=== PATIENT | female | born 1960 | race Asian ===

== ENCOUNTER 2017-01-23 09:18 | Inpatient (IN) | payer MEDICAID, OTHER ==
[~2017-01-23] VITALS: Ht 160 cm; Wt 80.4 kg
[~2017-01-23 09:18] MED LIST: GABA-529 PO; LISI-661 PO; METF500T4 PO
[2017-01-23] MEDS ORDERED: INSLAN SQ (09:32)
[2017-01-23] MEDS ORDERED: GLIP5 PO (09:32)
[2017-01-23] MEDS ORDERED: LOSA25TA21 PO (09:32)
[2017-01-23] MEDS ORDERED: HYDROmorphone 2 MG/ML SYRINGE IVP ONE (11:00)
[2017-01-23] MEDS ORDERED: ONDANSETRON HCL 4 MG/2 ML VIAL IVP ONE (11:00)
[2017-01-23] MEDS ORDERED: SODIUM CHLORIDE 0.9% 1,000 ML IV ONE (11:07)
[2017-01-23 11:15] LABS: BASOPHILS % (AUTO) 0.1 % (0.0-2.0); EOSINOPHILS % (AUTO) 0 % (1.0-6.0); HEMATOCRIT 31.6 % (36-46); LYMPHOCYTES # (AUTO) 1.4 K/uL (1.0-4.8); LYMPHOCYTES % (AUTO) 3.6 % (22.0-44.0); MEAN CORPUSCULAR HEMOGLOBIN 27.4 pg (26.0-34.0); MEAN CORPUSCULAR HGB CONC 31.8 G/dL (31.0-37.0); MEAN CORPUSCULAR VOLUME 86 fL (80-100); MONOCYTES # (AUTO) 0.9 K/uL (0.1-1.0); MONOCYTES % (AUTO) 2.3 % (2.0-9.0); NEUTROPHILS # (AUTO) 37.4 K/uL (1.8-7.7); PLATELET COUNT (AUTO) 494 K/uL (150-450); RED BLOOD CELL COUNT(AUTO) 3.67 MIL/uL (4.00-5.20); RED CELL DISTRIBUTION WIDTH 14.1 % (11.5-14.5)
[2017-01-23 11:25] LABS: WHITE BLOOD COUNT (AUTO) 39.8 K/uL (4.5-11.0)
[2017-01-23 11:26] LABS: ANION GAP 17 mmol/L (8-16); CALCIUM, TOTAL 8.7 mg/dL (8.8-10.5); CARBON DIOXIDE 23 mmol/L (22-29); CHLORIDE 92 mmol/L (98-107); CREATININE 3.36 mg/dL (0.60-1.30); GLOMERULAR FILTR. RATE CALC 14 mL/min (>60); POTASSIUM 3.7 mmol/L (3.5-5.1); SODIUM SERUM 132 mmol/L (136-145); UREA NITROGEN, BLOOD 51 mg/dL (7-18)
[2017-01-23 11:38] LABS: LACTIC ACID 2.6 mmol/L (0.4-2.0)
[2017-01-23 11:42] LABS: ALANINE AMINOTRANSFERASE 48 U/L (12-78); ALBUMIN 1.5 g/dL (3.4-5.0); ASPARTATE AMINOTRANSFERASE 37 U/L (15-37); BILIRUBIN,TOTAL 0.8 mg/dL (0.1-1.0); TOTAL PROTEIN, SERUM 9.2 g/dL (6.4-8.2)
[2017-01-23 11:44] LABS: RBC MORPHOLOGY COMMENT NORMAL RBC MORPH
[2017-01-23] MEDS ORDERED: METOCLOPRAMIDE HCL 5 MG/ML 2 ML VIAL IVP ONE (12:30)
[2017-01-23 12:32] LABS: GLUCOSE,POINT OF CARE 319 MG/DL (70-110)
[2017-01-23] MEDS ORDERED: CEFTAROLINE FOSAMIL 400 MG in DEXTROSE 5%-WATER 250 ML IV ONE (13:00)
[2017-01-23 13:11] LABS: REFLEX LACTIC ACID? YES YES
[2017-01-23] MEDS ORDERED: ACETAMINOPHEN 325 MG TABLET PO PRN ×2 (13:45→18:15)
[2017-01-23] MEDS ORDERED: 0.9% SODIUM CHLORIDE 10 ML SYRINGE IVP PRN (13:45)
[2017-01-23] MEDS ORDERED: ONDANSETRON HCL 4 MG/2 ML VIAL IVP PRN (13:45)
[2017-01-23] MEDS ORDERED: INSULIN REGULAR, HUMAN 100 UNITS/ML SQ ONE (14:15)
[2017-01-23 16:48] VITALS: BP 141/67
[2017-01-23] MEDS ORDERED: PNEUMOCOCCAL VACCINE POLYVALENT 0.5 ML VIAL [PPSV23] IM ONE (17:15)
[2017-01-23] MEDS ORDERED: IPRATROPIUM BROMIDE 0.5 MG/2.5 ML NEB SOLUTION NEB PRN (18:15)
[2017-01-23] MEDS ORDERED: ZOLPIDEM TARTRATE 5 MG TABLET PO PRN (18:15)
[2017-01-23] MEDS ORDERED: MAGNESIUM HYDROXIDE SUSPENSION 30 ML UDCUP PO PRN (18:15)
[2017-01-23] MEDS ORDERED: BISACODYL 10 MG RECTAL RECTAL SUPPOSITORY PR PRN (18:15)
[2017-01-23] MEDS ORDERED: ALBUTEROL SULFATE 2.5 MG/0.5 ML NEB SOLUTION NEB PRN (18:15)
[2017-01-23] MEDS ORDERED: MORPHINE SULFATE 2 MG/ML SYRINGE IVP PRN (18:30)
[2017-01-23] MEDS: MORPHINE SULFATE 4 MG/ML SYRINGE IVP PRN ×2 (18:43→21:09)
[2017-01-23] MEDS: DOCUSATE SODIUM 100 MG CAPSULE PO SCH (19:56)
[2017-01-23 20:19] VITALS: BP 88/45
[2017-01-23] MEDS ORDERED: SODIUM CHLORIDE 0.9% 500 ML IV ONE (23:05)
[2017-01-23] MEDS: PIPERACILLIN SODIUM/TAZOBACTAM 2.25 GM in DEXTROSE 5%-WATER 50 ML IV SCH (23:18)
[2017-01-23 23:50] VITALS: BP 106/59
[2017-01-24] VITALS (7 sets, daily range): BP systolic 78–107; BP diastolic 42–62
[2017-01-24] MEDS ORDERED: DEXTROSE 50%-WATER 25 GM/50 ML SYRINGE IVP PRN
[2017-01-24] MEDS: DAPTOMYCIN 450 MG in SODIUM CHLORIDE 0.9% 50 ML IV SCH (00:08)
[2017-01-24] MEDS: HEPARIN SODIUM,PORCINE 5,000 UNITS/ML VIAL SQ SCH ×4 (00:12→23:51)
[2017-01-24] MEDS: MORPHINE SULFATE 4 MG/ML SYRINGE IVP PRN ×4 (00:23→15:13)
[2017-01-24 00:32] LABS: GLUCOSE,POINT OF CARE 272 MG/DL (70-110)
[2017-01-24] MEDS: CLINDAMYCIN 900 MG/D5% WATER 50 ML IV SCH ×4 (00:45→23:51)
[2017-01-24] MEDS: PIPERACILLIN SODIUM/TAZOBACTAM 2.25 GM in DEXTROSE 5%-WATER 50 ML IV SCH ×3 (06:09→22:14)
[2017-01-24] MEDS: INSULIN ASPART 100 UNITS/ML SQ PRN ×2 (06:10→17:14)
[2017-01-24 06:25] LABS: BASOPHILS % (AUTO) 0.3 % (0.0-2.0); EOSINOPHILS % (AUTO) 0.1 % (1.0-6.0); HEMATOCRIT 28.3 % (36-46); HEMOGLOBIN 9.1 g/dL (12.0-16.0); LYMPHOCYTES # (AUTO) 1.6 K/uL (1.0-4.8); LYMPHOCYTES % (AUTO) 4.5 % (22.0-44.0); MEAN CORPUSCULAR HEMOGLOBIN 27.9 pg (26.0-34.0); MEAN CORPUSCULAR HGB CONC 32.3 G/dL (31.0-37.0); MEAN CORPUSCULAR VOLUME 87 fL (80-100); MONOCYTES # (AUTO) 0.9 K/uL (0.1-1.0); MONOCYTES % (AUTO) 2.6 % (2.0-9.0); NEUTROPHILS # (AUTO) 32.7 K/uL (1.8-7.7); PLATELET COUNT (AUTO) 469 K/uL (150-450); RED BLOOD CELL COUNT(AUTO) 3.28 MIL/uL (4.00-5.20); RED CELL DISTRIBUTION WIDTH 14.6 % (11.5-14.5)
[2017-01-24 06:46] LABS: NEUTROPHILS % (AUTO) 92.5 % (40.0-70.0)
[2017-01-24 06:48] LABS: WHITE BLOOD COUNT (AUTO) 35.3 K/uL (4.5-11.0)
[2017-01-24 06:55] LABS: ALBUMIN 1.4 g/dL (3.4-5.0); BILIRUBIN,TOTAL 0.6 mg/dL (0.1-1.0); CALCIUM, TOTAL 8.2 mg/dL (8.8-10.5); CHOL/HDL RATIO 21.8 (3.9-5.7); CREATININE 4.16 mg/dL (0.60-1.30); HEMOGLOBIN A1C 10.1 % (4.5-6.2); PHOSPHORUS 4.9 mg/dL (2.5-4.9); POTASSIUM 3.5 mmol/L (3.5-5.1); TOTAL PROTEIN, SERUM 8.3 g/dL (6.4-8.2)
[2017-01-24 07:01] LABS: GLUCOSE,POINT OF CARE 216 MG/DL (70-110)
[2017-01-24 07:44] LABS: RBC MORPHOLOGY COMMENT NORMAL RBC MORPH
[2017-01-24] MEDS: GABAPENTIN 100 MG CAPSULE PO SCH (08:02)
[2017-01-24] MEDS: DOCUSATE SODIUM 100 MG CAPSULE PO SCH ×2 (08:02→20:38)
[2017-01-24] MEDS: SODIUM CHLORIDE 0.9% 1,000 ML IV SCH ×2 (08:03→16:02)
[2017-01-24] MEDS: PANTOPRAZOLE SODIUM 40 MG/VIAL IVP SCH (08:03)
[2017-01-24] MEDS ORDERED: LOSARTAN POTASSIUM 25 MG TABLET PO SCH (09:00)
[2017-01-24] MEDS: INSULIN DETEMIR 100 UNITS/ML SQ SCH ×2 (09:23→20:39)
[2017-01-24] MEDS: ONDANSETRON HCL 4 MG/2 ML VIAL IVP PRN (09:59)
[2017-01-24 10:57] LABS: GLUCOSE COMMENT 1 Received Meds; GLUCOSE,POINT OF CARE 237 MG/DL (70-110)
[2017-01-24] MEDS ORDERED: SODIUM CHLORIDE 0.9% 250 ML IV ONE (11:45)
[2017-01-24] MEDS ORDERED: PHENYLEPHRINE 200 MG/D5%-WATER 250 ML IV PRN (11:45)
[2017-01-24 13:36] LABS: GLUCOSE,POINT OF CARE 267 MG/DL (70-110)
[2017-01-24] MEDS: HYDROCODONE/ACETAMINOPHEN 5-325 MG TABLET PO PRN ×2 (15:05→23:30)
[2017-01-25] VITALS (12 sets, daily range): BP systolic 85–147; BP diastolic 32–81
[2017-01-25 01:16] LABS: GLUCOSE,POINT OF CARE 293 MG/DL (70-110)
[2017-01-25 01:16] LABS: GLUCOSE COMMENT 1 Received Meds; GLUCOSE,POINT OF CARE 207 MG/DL (70-110)
[2017-01-25] MEDS: ONDANSETRON HCL 4 MG/2 ML VIAL IVP PRN ×4 (01:37→22:52)
[2017-01-25] MEDS: SODIUM CHLORIDE 0.9% 1,000 ML IV SCH ×3 (03:47→23:46)
[2017-01-25] MEDS: PIPERACILLIN SODIUM/TAZOBACTAM 2.25 GM in DEXTROSE 5%-WATER 50 ML IV SCH ×3 (05:27→21:15)
[2017-01-25] MEDS: INSULIN ASPART 100 UNITS/ML SQ PRN ×3 (05:30→17:29)
[2017-01-25 06:14] LABS: BASOPHILS % (AUTO) 0.1 % (0.0-2.0); EOSINOPHILS % (AUTO) 0.3 % (1.0-6.0); HEMATOCRIT 21.2 % (36-46); LYMPHOCYTES # (AUTO) 1.6 K/uL (1.0-4.8); LYMPHOCYTES % (AUTO) 4.4 % (22.0-44.0); MEAN CORPUSCULAR HEMOGLOBIN 28.8 pg (26.0-34.0); MEAN CORPUSCULAR VOLUME 87 fL (80-100); MONOCYTES % (AUTO) 2.8 % (2.0-9.0); NEUTROPHILS # (AUTO) 33.5 K/uL (1.8-7.7); PLATELET COUNT (AUTO) 398 K/uL (150-450); RED BLOOD CELL COUNT(AUTO) 2.44 MIL/uL (4.00-5.20); RED CELL DISTRIBUTION WIDTH 14.6 % (11.5-14.5)
[2017-01-25 06:20] LABS: CREATININE 5.79 mg/dL (0.60-1.30); MAGNESIUM 1.9 mg/dL (1.80-2.40); PHOSPHORUS 7.3 mg/dL (2.5-4.9); POTASSIUM 4.1 mmol/L (3.5-5.1)
[2017-01-25 06:58] LABS: NEUTROPHILS % (AUTO) 92.4 % (40.0-70.0); WHITE BLOOD COUNT (AUTO) 36.3 K/uL (4.5-11.0)
[2017-01-25] MEDS ORDERED: SODIUM CHLORIDE 0.9% 250 ML IV ONE (07:06)
[2017-01-25] MEDS: CLINDAMYCIN 900 MG/D5% WATER 50 ML IV SCH ×3 (09:37→23:59)
[2017-01-25] MEDS: GABAPENTIN 100 MG CAPSULE PO SCH (09:37)
[2017-01-25] MEDS: PANTOPRAZOLE SODIUM 40 MG/VIAL IVP SCH (09:37)
[2017-01-25] MEDS: HEPARIN SODIUM,PORCINE 5,000 UNITS/ML VIAL SQ SCH ×2 (09:37→20:31)
[2017-01-25] MEDS: MORPHINE SULFATE 4 MG/ML SYRINGE IVP PRN ×4 (09:38→22:52)
[2017-01-25] MEDS: DOCUSATE SODIUM 100 MG CAPSULE PO SCH ×2 (09:38→20:31)
[2017-01-25] MEDS: INSULIN DETEMIR 100 UNITS/ML SQ SCH ×2 (10:05→20:35)
[2017-01-25 10:11] LABS: RBC MORPHOLOGY COMMENT NORMAL RBC MORPH
[2017-01-25] MEDS: VITAMIN B COMP/VIT C/FOLIC ACID CAPSULE PO SCH (13:07)
[2017-01-25 13:27] LABS: GLUCOSE COMMENT 1 Received Meds; GLUCOSE,POINT OF CARE 194 MG/DL (70-110)
[2017-01-25 13:27] LABS: GLUCOSE COMMENT 1 Received Meds; GLUCOSE,POINT OF CARE 187 MG/DL (70-110)
[2017-01-25 13:27] LABS: GLUCOSE COMMENT 1 Received Meds; GLUCOSE,POINT OF CARE 197 MG/DL (70-110)
[2017-01-25 20:01] LABS: GLUCOSE COMMENT 1 Received Meds; GLUCOSE,POINT OF CARE 157 MG/DL (70-110)
[2017-01-25 22:51] LABS: HEMOGLOBIN 7.1 g/dL (12.0-16.0)
[2017-01-25] MEDS: DAPTOMYCIN 450 MG in SODIUM CHLORIDE 0.9% 50 ML IV SCH (22:53)
[2017-01-26] VITALS (17 sets, daily range): BP systolic 96–177; BP diastolic 49–80
[2017-01-26] MEDS: MORPHINE SULFATE 4 MG/ML SYRINGE IVP PRN ×6 (01:48→23:42)
[2017-01-26] MEDS: ONDANSETRON HCL 4 MG/2 ML VIAL IVP PRN ×3 (04:45→21:10)
[2017-01-26] MEDS: PIPERACILLIN SODIUM/TAZOBACTAM 2.25 GM in DEXTROSE 5%-WATER 50 ML IV SCH ×2 (05:16→15:38)
[2017-01-26 07:45] LABS: MEAN CORPUSCULAR HEMOGLOBIN 28.3 pg (26.0-34.0); MEAN CORPUSCULAR HGB CONC 32.8 G/dL (31.0-37.0); MEAN CORPUSCULAR VOLUME 86 fL (80-100); PLATELET COUNT (AUTO) 385 K/uL (150-450); RED BLOOD CELL COUNT(AUTO) 2.42 MIL/uL (4.00-5.20); RED CELL DISTRIBUTION WIDTH 14.8 % (11.5-14.5)
[2017-01-26 07:53] LABS: HEMATOCRIT 20.8 % (36-46); HEMOGLOBIN 6.8 g/dL (12.0-16.0); WHITE BLOOD COUNT (AUTO) 34.1 K/uL (4.5-11.0)
[2017-01-26 07:59] LABS: CALCIUM, TOTAL 7.9 mg/dL (8.8-10.5); CREATININE 6.76 mg/dL (0.60-1.30); MAGNESIUM 1.9 mg/dL (1.80-2.40); PHOSPHORUS 8.5 mg/dL (2.5-4.9); POTASSIUM 4.3 mmol/L (3.5-5.1)
[2017-01-26] MEDS: CLINDAMYCIN 900 MG/D5% WATER 50 ML IV SCH ×3 (08:09→23:43)
[2017-01-26 08:35] LABS: BAND NEUTROPHILS % (MANUAL) 12 % (1-5); TOTAL CELLS COUNTED 100
[2017-01-26 08:36] LABS: WBC MORPHOLOGY TOXIC GRANULATION
[2017-01-26 08:38] LABS: LYMPHOCYTES % (MANUAL) 6 % (22-44)
[2017-01-26] MEDS: CALCITRIOL 0.25 MCG CAPSULE PO SCH (09:00)
[2017-01-26] MEDS: VITAMIN B COMP/VIT C/FOLIC ACID CAPSULE PO SCH (09:00)
[2017-01-26] MEDS: INSULIN DETEMIR 100 UNITS/ML SQ SCH ×2 (09:00→21:00)
[2017-01-26] MEDS: DOCUSATE SODIUM 100 MG CAPSULE PO SCH ×2 (09:00→21:00)
[2017-01-26] MEDS: HEPARIN SODIUM,PORCINE 5,000 UNITS/ML VIAL SQ SCH ×2 (09:00→21:09)
[2017-01-26] MEDS: GABAPENTIN 100 MG CAPSULE PO SCH (09:00)
[2017-01-26] MEDS: PANTOPRAZOLE SODIUM 40 MG/VIAL IVP SCH (09:45)
[2017-01-26] MEDS ORDERED: SODIUM CHLORIDE 0.9% 500 ML IV ONE (10:57)
[2017-01-26] MEDS ORDERED: MORPHINE SULFATE 2 MG/ML SYRINGE IVP ONE (17:00)
[2017-01-26] MEDS: INSULIN ASPART 100 UNITS/ML SQ PRN (17:54)
[2017-01-26] MEDS: CeFAZolin 2 GM/DEXTROSE 50 ML IV SCH (23:46)
[2017-01-27] VITALS (8 sets, daily range): BP systolic 111–160; BP diastolic 55–90
[2017-01-27] MEDS: CeFAZolin 2 GM/DEXTROSE 50 ML IV SCH ×2 (00:39→08:00)
[2017-01-27] MEDS ORDERED: SODIUM CL IRRIG SOLN BOTTLE 250 ML IRRIG ONE (02:40)
[2017-01-27 06:06] LABS: ALPHA-1 URINE (ELP) 2.8 %; ALPHA-2 URINE(ELP) 9.6 %; BETA URINE(ELP) 16.3 %; TOTAL PROTEIN URINE 129.7 mg/dL (Not Estab.)
[2017-01-27] MEDS: HEPARIN SODIUM,PORCINE 5,000 UNITS/ML VIAL SQ SCH ×2 (07:51→20:23)
[2017-01-27 07:52] LABS: GLUCOSE,POINT OF CARE 138 MG/DL (70-110)
[2017-01-27 07:52] LABS: GLUCOSE,POINT OF CARE 147 MG/DL (70-110)
[2017-01-27] MEDS: ONDANSETRON HCL 4 MG/2 ML VIAL IVP PRN ×2 (07:54→20:23)
[2017-01-27] MEDS: PANTOPRAZOLE SODIUM 40 MG/VIAL IVP SCH (08:00)
[2017-01-27 08:02] LABS: CALCIUM, TOTAL 7.9 mg/dL (8.8-10.5); CREATININE 7.86 mg/dL (0.60-1.30); MAGNESIUM 2.1 mg/dL (1.80-2.40); POTASSIUM 4.6 mmol/L (3.5-5.1)
[2017-01-27] MEDS: INSULIN DETEMIR 100 UNITS/ML SQ SCH ×2 (08:04→20:22)
[2017-01-27] MEDS: DOCUSATE SODIUM 100 MG CAPSULE PO SCH ×2 (09:00→20:21)
[2017-01-27] MEDS: GABAPENTIN 100 MG CAPSULE PO SCH (09:00)
[2017-01-27] MEDS: CALCITRIOL 0.25 MCG CAPSULE PO SCH (09:00)
[2017-01-27] MEDS: VITAMIN B COMP/VIT C/FOLIC ACID CAPSULE PO SCH (09:00)
[2017-01-27 09:12] LABS: PHOSPHORUS 9.6 mg/dL (2.5-4.9)
[2017-01-27 09:50] LABS: BASOPHILS # (AUTO) 0.03 K/uL (0.00-0.20); BASOPHILS % (AUTO) 0.1 % (0.0-2.0); EOSINOPHILS # (AUTO) 0.15 K/uL (0.00-0.70); EOSINOPHILS % (AUTO) 0.58 % (1.0-6.0); HEMATOCRIT 23.8 % (36-46); HEMOGLOBIN 8.1 g/dL (12.0-16.0); LYMPHOCYTES # (AUTO) 1.6 K/uL (1.0-4.8); LYMPHOCYTES % (AUTO) 6.2 % (22.0-44.0); MEAN CORPUSCULAR HEMOGLOBIN 29.1 pg (26.0-34.0); MEAN CORPUSCULAR HGB CONC 33.8 G/dL (31.0-37.0); MEAN CORPUSCULAR VOLUME 86 fL (80-100); MONOCYTES # (AUTO) 0.8 K/uL (0.1-1.0); MONOCYTES % (AUTO) 3.2 % (2.0-9.0); PLATELET COUNT (AUTO) 375 K/uL (150-450); RED BLOOD CELL COUNT(AUTO) 2.77 MIL/uL (4.00-5.20); RED CELL DISTRIBUTION WIDTH 15.3 % (11.5-14.5); WHITE BLOOD COUNT (AUTO) 25.6 K/uL (4.5-11.0)
[2017-01-27 09:57] LABS: NEUTROPHILS % (AUTO) 89.9 % (40.0-70.0)
[2017-01-27 10:04] LABS: INR 1.1 (0.9-1.1); PROTHROMBIN TIME 11.5 SEC (9.4-11.6)
[2017-01-27] MEDS ORDERED: MIDAZOLAM HCL 2 MG/2 ML VIAL ONE (11:38)
[2017-01-27] MEDS ORDERED: FentaNYL CITRATE-PF 100 MCG/2 ML VIAL ONE (11:38)
[2017-01-27] MEDS ORDERED: SODIUM BICARBONATE 50 MEQ/50 ML VIAL ONE (11:39)
[2017-01-27] MEDS ORDERED: LIDOCAINE HCL/PF 1% 30 ML VIAL ONE (11:39)
[2017-01-27] MEDS ORDERED: LIDOCAINE HCL 1%/EPI 1:200,000/PF 10 ML VIAL ONE (11:39)
[2017-01-27] MEDS ORDERED: HEPARIN SODIUM 1000 UNITS/NS 500 ML ONE (11:39)
[2017-01-27] MEDS ORDERED: HEPARIN SODIUM,PORCINE 1,000 UNITS/ML 10 ML VIAL ONE (11:39)
[2017-01-27] MEDS ORDERED: ONDANSETRON HCL 4 MG/2 ML VIAL IVP ONE (12:00)
[2017-01-27] MEDS ORDERED: ONDANSETRON HCL 4 MG/2 ML VIAL ONE (12:02)
[2017-01-27] MEDS ORDERED: HEPARIN SODIUM,PORCINE 1,000 UNITS/ML VIAL IVP ONE ×3 (12:47→18:00)
[2017-01-27] MEDS ORDERED: MANNITOL 25%-12.5 GM/50 ML VIAL IVP ONE (12:47)
[2017-01-27 17:26] LABS: APPEARANCE,URINE CLOUDY (CLEAR); GLUCOSE, URINE (UA) NEGATIVE (NEGATIVE); KETONES,URINE NEGATIVE (NEGATIVE); LEUKOCYTE ESTERASE ,URINE NEGATIVE (NEGATIVE); OCCULT BLOOD,URINE LARGE (NEGATIVE); PROTEIN,URINE POS 1+ (NEGATIVE)
[2017-01-27] MEDS ORDERED: SODIUM CHLORIDE 0.9% 1,000 ML IV ONE ×2 (17:35)
[2017-01-27] MEDS: INSULIN ASPART 100 UNITS/ML SQ PRN (17:40)
[2017-01-27 17:47] LABS: ADD UA MICROSCOPIC YES
[2017-01-27] MEDS ORDERED: MANNITOL 25%-12.5 GM/50 ML VIAL IVP PRN (18:00)
[2017-01-27 18:01] LABS: RBC,URINE >100 /HPF (0-2)
[2017-01-27 18:02] LABS: RENAL EPITHELIAL CELLS,URINE Few /LPF (None Seen); SQUAMOUS EPITHELIAL CELL,UR Few /LPF (None Seen)
[2017-01-27] MEDS: HYDROCODONE/ACETAMINOPHEN 5-325 MG TABLET PO PRN (20:24)
[2017-01-28 01:11] LABS: GLUCOSE COMMENT 1 Received Meds; GLUCOSE,POINT OF CARE 163 MG/DL (70-110)
[2017-01-28 02:07] LABS: GLUCOSE,POINT OF CARE 114 MG/DL (70-110)
[2017-01-28 04:24] VITALS: BP 140/66
[2017-01-28] MEDS: INSULIN ASPART 100 UNITS/ML SQ PRN ×3 (06:27→20:17)
[2017-01-28] MEDS: HYDROCODONE/ACETAMINOPHEN 5-325 MG TABLET PO PRN ×3 (06:27→20:21)
[2017-01-28 07:13] VITALS: BP 143/69
[2017-01-28] MEDS: ONDANSETRON HCL 4 MG/2 ML VIAL IVP PRN ×2 (08:00→20:21)
[2017-01-28] MEDS: CeFAZolin 2 GM/DEXTROSE 50 ML IV SCH (08:00)
[2017-01-28] MEDS: PANTOPRAZOLE SODIUM 40 MG/VIAL IVP SCH (08:03)
[2017-01-28] MEDS: DOCUSATE SODIUM 100 MG CAPSULE PO SCH ×2 (08:07→20:00)
[2017-01-28] MEDS: GABAPENTIN 100 MG CAPSULE PO SCH (08:07)
[2017-01-28] MEDS: VITAMIN B COMP/VIT C/FOLIC ACID CAPSULE PO SCH (08:09)
[2017-01-28] MEDS: INSULIN DETEMIR 100 UNITS/ML SQ SCH ×2 (08:12→20:17)
[2017-01-28] MEDS: HEPARIN SODIUM,PORCINE 5,000 UNITS/ML VIAL SQ SCH ×2 (08:15→20:16)
[2017-01-28] MEDS: CALCITRIOL 0.25 MCG CAPSULE PO SCH (08:16)
[2017-01-28 08:55] LABS: BASOPHILS % (AUTO) 0.3 % (0.0-2.0); EOSINOPHILS % (AUTO) 0.6 % (1.0-6.0); HEMATOCRIT 26.4 % (36-46); HEMOGLOBIN 8.8 g/dL (12.0-16.0); LYMPHOCYTES # (AUTO) 1.1 K/uL (1.0-4.8); LYMPHOCYTES % (AUTO) 4.2 % (22.0-44.0); MEAN CORPUSCULAR HEMOGLOBIN 28.8 pg (26.0-34.0); MEAN CORPUSCULAR HGB CONC 33.3 G/dL (31.0-37.0); MEAN CORPUSCULAR VOLUME 86 fL (80-100); MONOCYTES # (AUTO) 0.7 K/uL (0.1-1.0); MONOCYTES % (AUTO) 2.9 % (2.0-9.0); NEUTROPHILS # (AUTO) 22.8 K/uL (1.8-7.7); PLATELET COUNT (AUTO) 442 K/uL (150-450); RED BLOOD CELL COUNT(AUTO) 3.07 MIL/uL (4.00-5.20); RED CELL DISTRIBUTION WIDTH 15.4 % (11.5-14.5); WHITE BLOOD COUNT (AUTO) 24.8 K/uL (4.5-11.0)
[2017-01-28 09:19] LABS: CALCIUM, TOTAL 8.6 mg/dL (8.8-10.5); CREATININE 5.73 mg/dL (0.60-1.30); MAGNESIUM 1.9 mg/dL (1.80-2.40); PHOSPHORUS 6.5 mg/dL (2.5-4.9); POTASSIUM 3.8 mmol/L (3.5-5.1)
[2017-01-28 09:56] LABS: RBC MORPHOLOGY COMMENT NORMAL RBC MORPH
[2017-01-28 11:20] VITALS: BP 150/71
[2017-01-28 11:27] LABS: GLUCOSE,POINT OF CARE 133 MG/DL (70-110)
[2017-01-28 11:32] LABS: GLUCOSE,POINT OF CARE 137 MG/DL (70-110)
[2017-01-28 11:33] LABS: GLUCOSE,POINT OF CARE 142 MG/DL (70-110)
[2017-01-28 11:33] LABS: GLUCOSE COMMENT 1 Received Meds; GLUCOSE,POINT OF CARE 134 MG/DL (70-110)
[2017-01-28 11:33] LABS: GLUCOSE COMMENT 1 Received Meds; GLUCOSE,POINT OF CARE 142 MG/DL (70-110)
[2017-01-28] MEDS: LACTOBAC ACID/BULG/BIFID/THERM TABLET PO SCH ×2 (14:04→20:18)
[2017-01-28 14:52] VITALS: BP 138/70
[2017-01-28] MEDS ORDERED: HEPARIN SODIUM,PORCINE 1,000 UNITS/ML VIAL IVP ONE (14:52)
[2017-01-28 16:42] LABS: GLUCOSE,POINT OF CARE 142 MG/DL (70-110)
[2017-01-28 20:03] VITALS: BP 149/75
[2017-01-28 21:42] LABS: GLUCOSE COMMENT 1 Received Meds; GLUCOSE,POINT OF CARE 158 MG/DL (70-110)
[2017-01-29] VITALS (7 sets, daily range): BP systolic 139–165; BP diastolic 63–93
[2017-01-29 03:42] LABS: GLUCOSE COMMENT 1 Received Meds; GLUCOSE,POINT OF CARE 141 MG/DL (70-110)
[2017-01-29 06:46] LABS: CREATININE 3.26 mg/dL (0.60-1.30); POTASSIUM 3.9 mmol/L (3.5-5.1)
[2017-01-29] MEDS: PANTOPRAZOLE SODIUM 40 MG/VIAL IVP SCH (07:40)
[2017-01-29] MEDS: CeFAZolin 2 GM/DEXTROSE 50 ML IV SCH (07:42)
[2017-01-29] MEDS: DOCUSATE SODIUM 100 MG CAPSULE PO SCH ×2 (07:43→21:00)
[2017-01-29] MEDS: HEPARIN SODIUM,PORCINE 5,000 UNITS/ML VIAL SQ SCH ×2 (07:43→22:00)
[2017-01-29] MEDS: INSULIN DETEMIR 100 UNITS/ML SQ SCH ×2 (07:45→22:01)
[2017-01-29] MEDS ORDERED: SODIUM CHLORIDE 0.9% 250 ML IV ONE (07:46)
[2017-01-29] MEDS: INSULIN ASPART 100 UNITS/ML SQ PRN ×4 (07:46→22:02)
[2017-01-29] MEDS: VITAMIN B COMP/VIT C/FOLIC ACID CAPSULE PO SCH (08:54)
[2017-01-29] MEDS: CALCITRIOL 0.25 MCG CAPSULE PO SCH (08:54)
[2017-01-29] MEDS: GABAPENTIN 100 MG CAPSULE PO SCH (08:54)
[2017-01-29] MEDS: HYDROCODONE/ACETAMINOPHEN 5-325 MG TABLET PO PRN ×2 (08:54→17:25)
[2017-01-29] MEDS: LACTOBAC ACID/BULG/BIFID/THERM TABLET PO SCH ×2 (08:54→22:00)
[2017-01-29] MEDS: SEVELAMER CARBONATE 800 MG TABLET PO SCH ×2 (13:10→18:05)
[2017-01-30 00:52] LABS: GLUCOSE COMMENT 1 Received Meds; GLUCOSE,POINT OF CARE 238 MG/DL (70-110)
[2017-01-30] MEDS: HYDROCODONE/ACETAMINOPHEN 5-325 MG TABLET PO PRN ×3 (02:13→20:01)
[2017-01-30 05:22] VITALS: BP 149/87
[2017-01-30] MEDS: INSULIN ASPART 100 UNITS/ML SQ PRN ×4 (06:01→20:51)
[2017-01-30 06:56] LABS: EOSINOPHILS % (AUTO) 0.4 % (1.0-6.0); HEMOGLOBIN 10.2 g/dL (12.0-16.0); LYMPHOCYTES # (AUTO) 1.9 K/uL (1.0-4.8); LYMPHOCYTES % (AUTO) 8.4 % (22.0-44.0); MEAN CORPUSCULAR HEMOGLOBIN 28.3 pg (26.0-34.0); MEAN CORPUSCULAR HGB CONC 32.8 G/dL (31.0-37.0); MEAN CORPUSCULAR VOLUME 86 fL (80-100); MONOCYTES # (AUTO) 0.6 K/uL (0.1-1.0); MONOCYTES % (AUTO) 2.6 % (2.0-9.0); NEUTROPHILS # (AUTO) 20.6 K/uL (1.8-7.7); PLATELET COUNT (AUTO) 477 K/uL (150-450); RED CELL DISTRIBUTION WIDTH 15.1 % (11.5-14.5); WHITE BLOOD COUNT (AUTO) 23.3 K/uL (4.5-11.0)
[2017-01-30 07:17] LABS: ALBUMIN 1.4 g/dL (3.4-5.0); BILIRUBIN,TOTAL 0.5 mg/dL (0.1-1.0); CALCIUM, TOTAL 8.5 mg/dL (8.8-10.5); CREATININE 3.26 mg/dL (0.60-1.30); POTASSIUM 3.6 mmol/L (3.5-5.1); TOTAL PROTEIN, SERUM 8.8 g/dL (6.4-8.2)
[2017-01-30 07:35] LABS: NEUTROPHILS % (AUTO) 88.6 % (40.0-70.0)
[2017-01-30 07:44] VITALS: BP 150/80
[2017-01-30] MEDS: HEPARIN SODIUM,PORCINE 5,000 UNITS/ML VIAL SQ SCH ×2 (08:27→20:01)
[2017-01-30] MEDS: SEVELAMER CARBONATE 800 MG TABLET PO SCH ×3 (08:27→18:15)
[2017-01-30] MEDS: VITAMIN B COMP/VIT C/FOLIC ACID CAPSULE PO SCH (08:27)
[2017-01-30] MEDS: DOCUSATE SODIUM 100 MG CAPSULE PO SCH ×2 (08:27→20:01)
[2017-01-30] MEDS: CeFAZolin 2 GM/DEXTROSE 50 ML IV SCH (08:27)
[2017-01-30] MEDS: PANTOPRAZOLE SODIUM 40 MG/VIAL IVP SCH (08:27)
[2017-01-30] MEDS: CALCITRIOL 0.25 MCG CAPSULE PO SCH (08:28)
[2017-01-30] MEDS: LACTOBAC ACID/BULG/BIFID/THERM TABLET PO SCH ×2 (08:28→20:01)
[2017-01-30] MEDS: GABAPENTIN 100 MG CAPSULE PO SCH (08:29)
[2017-01-30] MEDS: INSULIN DETEMIR 100 UNITS/ML SQ SCH ×2 (09:43→20:52)
[2017-01-30 11:06] VITALS: BP 151/61
[2017-01-30 13:16] LABS: GLUCOSE COMMENT 1 Received Meds; GLUCOSE,POINT OF CARE 151 MG/DL (70-110)
[2017-01-30 13:16] LABS: GLUCOSE COMMENT 1 Received Meds; GLUCOSE,POINT OF CARE 191 MG/DL (70-110)
[2017-01-30 13:22] LABS: GLUCOSE COMMENT 1 Received Meds; GLUCOSE,POINT OF CARE 159 MG/DL (70-110)
[2017-01-30 13:27] LABS: GLUCOSE COMMENT 1 Received Meds; GLUCOSE,POINT OF CARE 208 MG/DL (70-110)
[2017-01-30 15:49] VITALS: BP 137/79
[2017-01-30 19:40] VITALS: BP 154/76
[2017-01-31 00:02] VITALS: BP 140/74
[2017-01-31] MEDS: HYDROCODONE/ACETAMINOPHEN 5-325 MG TABLET PO PRN ×5 (00:35→20:29)
[2017-01-31 04:57] VITALS: BP 151/75
[2017-01-31] MEDS ORDERED: SODIUM CHLORIDE 0.9% 250 ML IV ONE (05:50)
[2017-01-31 06:19] LABS: BASOPHILS % (AUTO) 0.1 % (0.0-2.0); EOSINOPHILS % (AUTO) 1.3 % (1.0-6.0); HEMATOCRIT 30.9 % (36-46); HEMOGLOBIN 10.1 g/dL (12.0-16.0); LYMPHOCYTES # (AUTO) 2.2 K/uL (1.0-4.8); LYMPHOCYTES % (AUTO) 11.1 % (22.0-44.0); MEAN CORPUSCULAR HEMOGLOBIN 28.5 pg (26.0-34.0); MEAN CORPUSCULAR HGB CONC 32.7 G/dL (31.0-37.0); MEAN CORPUSCULAR VOLUME 87 fL (80-100); MONOCYTES # (AUTO) 0.8 K/uL (0.1-1.0); MONOCYTES % (AUTO) 4.2 % (2.0-9.0); NEUTROPHILS # (AUTO) 16.7 K/uL (1.8-7.7); NEUTROPHILS % (AUTO) 83.3 % (40.0-70.0); PLATELET COUNT (AUTO) 459 K/uL (150-450); RED BLOOD CELL COUNT(AUTO) 3.54 MIL/uL (4.00-5.20); RED CELL DISTRIBUTION WIDTH 15.3 % (11.5-14.5)
[2017-01-31] MEDS: INSULIN ASPART 100 UNITS/ML SQ PRN ×4 (06:32→21:05)
[2017-01-31 07:22] VITALS: BP 143/77
[2017-01-31 07:40] LABS: CALCIUM, TOTAL 8.7 mg/dL (8.8-10.5); CREATININE 3.02 mg/dL (0.60-1.30); MAGNESIUM 1.4 mg/dL (1.80-2.40); PHOSPHORUS 4.3 mg/dL (2.5-4.9); POTASSIUM 3.8 mmol/L (3.5-5.1)
[2017-01-31] MEDS ORDERED: MAGNESIUM SULFATE 1 GM in DEXTROSE 5%-WATER 50 ML IV ONE (08:00)
[2017-01-31] MEDS: VITAMIN B COMP/VIT C/FOLIC ACID CAPSULE PO SCH (08:54)
[2017-01-31] MEDS: PANTOPRAZOLE SODIUM 40 MG/VIAL IVP SCH (08:54)
[2017-01-31] MEDS: EPOETIN ALFA 10,000 UNITS/ML VIAL SQ SCH (08:54)
[2017-01-31] MEDS: SEVELAMER CARBONATE 800 MG TABLET PO SCH ×3 (08:54→18:05)
[2017-01-31] MEDS: DOCUSATE SODIUM 100 MG CAPSULE PO SCH ×2 (08:54→20:30)
[2017-01-31] MEDS: CALCITRIOL 0.25 MCG CAPSULE PO SCH (08:54)
[2017-01-31] MEDS: LACTOBAC ACID/BULG/BIFID/THERM TABLET PO SCH ×2 (08:54→20:28)
[2017-01-31] MEDS: HEPARIN SODIUM,PORCINE 5,000 UNITS/ML VIAL SQ SCH ×2 (08:55→20:30)
[2017-01-31] MEDS: GABAPENTIN 100 MG CAPSULE PO SCH (08:55)
[2017-01-31] MEDS: CeFAZolin 2 GM/DEXTROSE 50 ML IV SCH (09:12)
[2017-01-31] MEDS: INSULIN DETEMIR 100 UNITS/ML SQ SCH ×2 (09:21→21:05)
[2017-01-31] MEDS: ONDANSETRON HCL 4 MG/2 ML VIAL IVP PRN (10:17)
[2017-01-31 11:37] VITALS: BP 136/71
[2017-01-31 15:38] VITALS: BP 141/76
[2017-01-31 19:44] VITALS: BP 134/73
[2017-02-01] VITALS (11 sets, daily range): BP systolic 122–178; BP diastolic 60–94
[2017-02-01 01:57] LABS: GLUCOSE COMMENT 1 Received Meds; GLUCOSE,POINT OF CARE 197 MG/DL (70-110)
[2017-02-01 01:57] LABS: GLUCOSE COMMENT 1 Received Meds; GLUCOSE,POINT OF CARE 175 MG/DL (70-110)
[2017-02-01 03:16] LABS: GLUCOSE COMMENT 1 Received Meds; GLUCOSE,POINT OF CARE 242 MG/DL (70-110)
[2017-02-01 03:16] LABS: GLUCOSE COMMENT 1 Received Meds; GLUCOSE,POINT OF CARE 191 MG/DL (70-110)
[2017-02-01] MEDS: HYDROCODONE/ACETAMINOPHEN 5-325 MG TABLET PO PRN ×3 (05:15→19:36)
[2017-02-01 06:06] LABS: BASOPHILS % (AUTO) 0.3 % (0.0-2.0); EOSINOPHILS % (AUTO) 1.3 % (1.0-6.0); HEMATOCRIT 30.2 % (36-46); HEMOGLOBIN 9.9 g/dL (12.0-16.0); LYMPHOCYTES # (AUTO) 2.6 K/uL (1.0-4.8); LYMPHOCYTES % (AUTO) 13.1 % (22.0-44.0); MEAN CORPUSCULAR HEMOGLOBIN 28.5 pg (26.0-34.0); MEAN CORPUSCULAR HGB CONC 32.8 G/dL (31.0-37.0); MEAN CORPUSCULAR VOLUME 87 fL (80-100); MONOCYTES # (AUTO) 0.9 K/uL (0.1-1.0); MONOCYTES % (AUTO) 4.5 % (2.0-9.0); NEUTROPHILS # (AUTO) 16.1 K/uL (1.8-7.7); NEUTROPHILS % (AUTO) 80.8 % (40.0-70.0); PLATELET COUNT (AUTO) 448 K/uL (150-450); RED BLOOD CELL COUNT(AUTO) 3.48 MIL/uL (4.00-5.20); RED CELL DISTRIBUTION WIDTH 15.4 % (11.5-14.5); WHITE BLOOD COUNT (AUTO) 19.9 K/uL (4.5-11.0)
[2017-02-01 06:58] LABS: CALCIUM, TOTAL 8.7 mg/dL (8.8-10.5); CREATININE 2.94 mg/dL (0.60-1.30); MAGNESIUM 1.6 mg/dL (1.80-2.40); PHOSPHORUS 4.3 mg/dL (2.5-4.9); POTASSIUM 3.8 mmol/L (3.5-5.1)
[2017-02-01] MEDS: SILVER 45 ML GEL TP SCH (09:00)
[2017-02-01] MEDS: INSULIN DETEMIR 100 UNITS/ML SQ SCH ×2 (09:00→20:46)
[2017-02-01] MEDS: CALCITRIOL 0.25 MCG CAPSULE PO SCH (09:31)
[2017-02-01] MEDS: HEPARIN SODIUM,PORCINE 5,000 UNITS/ML VIAL SQ SCH (09:31)
[2017-02-01] MEDS: VITAMIN B COMP/VIT C/FOLIC ACID CAPSULE PO SCH (09:31)
[2017-02-01] MEDS: PANTOPRAZOLE SODIUM 40 MG/VIAL IVP SCH (09:31)
[2017-02-01] MEDS: GABAPENTIN 100 MG CAPSULE PO SCH (09:31)
[2017-02-01] MEDS: DOCUSATE SODIUM 100 MG CAPSULE PO SCH ×2 (09:31→20:41)
[2017-02-01] MEDS: CeFAZolin 2 GM/DEXTROSE 50 ML IV SCH (09:32)
[2017-02-01] MEDS: SEVELAMER CARBONATE 800 MG TABLET PO SCH ×3 (09:32→18:00)
[2017-02-01] MEDS: LACTOBAC ACID/BULG/BIFID/THERM TABLET PO SCH ×2 (09:32→22:00)
[2017-02-01] MEDS ORDERED: LIDOCAINE HCL/PF 1% 30 ML VIAL ONE ×2 (11:59→14:34)
[2017-02-01] MEDS ORDERED: SODIUM CHLORIDE 0.9% 0 ML IV ONE (12:00)
[2017-02-01] MEDS ORDERED: HEPARIN SODIUM 1000 UNITS/NS 0 ML ONE (12:01)
[2017-02-01] MEDS ORDERED: VERAPAMIL HCL 2.5 MG/ML 2 ML VIAL ONE (12:02)
[2017-02-01] MEDS: AmLODIPine BESYLATE 5 MG TABLET PO SCH (14:21)
[2017-02-01] MEDS ORDERED: SODIUM CHLORIDE 0.9% 1,000 ML IV ONE ×2 (14:26→15:00)
[2017-02-01] MEDS ORDERED: FentaNYL CITRATE-PF 100 MCG/2 ML VIAL ONE (14:33)
[2017-02-01] MEDS ORDERED: MIDAZOLAM HCL 2 MG/2 ML VIAL ONE (14:34)
[2017-02-01] MEDS ORDERED: HEPARIN SODIUM 1000 UNITS/NS 500 ML ONE (14:34)
[2017-02-01] MEDS ORDERED: IODIXANOL 320 MG/ML 50 ML VIAL ONE (14:35)
[2017-02-01] MEDS ORDERED: HEPARIN SODIUM,PORCINE 1,000 UNITS/ML 10 ML VIAL ONE (15:54)
[2017-02-01] MEDS ORDERED: HEPARIN SODIUM,PORCINE 5,000 UNITS/ML VIAL IVP ONE ×2 (15:57→16:30)
[2017-02-01] MEDS ORDERED: MIDAZOLAM HCL 2 MG/2 ML VIAL IVP ONE (16:20)
[2017-02-01] MEDS ORDERED: FentaNYL CITRATE-PF 100 MCG/2 ML VIAL IVP ONE (16:20)
[2017-02-01] MEDS ORDERED: HEPARIN SODIUM,PORCINE 5,000 UNITS/ML VIAL IVP PRN ×2 (16:30)
[2017-02-01] MEDS: ALTEPLASE 8 MG in SODIUM CHLORIDE 0.9% 250 ML IV SCH (17:40)
[2017-02-01] MEDS: SODIUM CHLORIDE 0.9% 500 ML IV SCH (17:42)
[2017-02-01] MEDS: MORPHINE SULFATE 4 MG/ML SYRINGE IVP PRN ×2 (19:19→22:08)
[2017-02-01] MEDS: HEPARIN SODIUM 25000 UNITS/D5W 250 ML IV PRN (19:34)
[2017-02-01] MEDS: INSULIN ASPART 100 UNITS/ML SQ PRN (20:50)
[2017-02-02] VITALS (15 sets, daily range): BP systolic 105–162; BP diastolic 51–83
[2017-02-02] MEDS: ALTEPLASE 8 MG in SODIUM CHLORIDE 0.9% 250 ML IV SCH ×3 (00:52→18:53)
[2017-02-02] MEDS: MORPHINE SULFATE 4 MG/ML SYRINGE IVP PRN (02:16)
[2017-02-02] MEDS: MORPHINE SULFATE 2 MG/ML SYRINGE IVP PRN ×3 (04:43→11:47)
[2017-02-02] MEDS: INSULIN ASPART 100 UNITS/ML SQ PRN ×2 (05:22→21:02)
[2017-02-02 05:57] LABS: CALCIUM, TOTAL 8.4 mg/dL (8.8-10.5); CREATININE 2.64 mg/dL (0.60-1.30); MAGNESIUM 1.4 mg/dL (1.80-2.40); PHOSPHORUS 4.3 mg/dL (2.5-4.9)
[2017-02-02 06:15] LABS: BASOPHILS % (AUTO) 0.2 % (0.0-2.0); EOSINOPHILS % (AUTO) 0.9 % (1.0-6.0); HEMATOCRIT 28.6 % (36-46); HEMOGLOBIN 9.3 g/dL (12.0-16.0); LYMPHOCYTES # (AUTO) 2.2 K/uL (1.0-4.8); LYMPHOCYTES % (AUTO) 10.4 % (22.0-44.0); MEAN CORPUSCULAR HEMOGLOBIN 28.8 pg (26.0-34.0); MEAN CORPUSCULAR HGB CONC 32.7 G/dL (31.0-37.0); MEAN CORPUSCULAR VOLUME 88 fL (80-100); MONOCYTES # (AUTO) 1.1 K/uL (0.1-1.0); MONOCYTES % (AUTO) 5.4 % (2.0-9.0); NEUTROPHILS # (AUTO) 17.4 K/uL (1.8-7.7); NEUTROPHILS % (AUTO) 83.1 % (40.0-70.0); PLATELET COUNT (AUTO) 350 K/uL (150-450); RED BLOOD CELL COUNT(AUTO) 3.24 MIL/uL (4.00-5.20); RED CELL DISTRIBUTION WIDTH 15.4 % (11.5-14.5); WHITE BLOOD COUNT (AUTO) 20.9 K/uL (4.5-11.0)
[2017-02-02] MEDS: SEVELAMER CARBONATE 800 MG TABLET PO SCH ×3 (08:00→19:09)
[2017-02-02 08:02] LABS: GLUCOSE,POINT OF CARE 236 MG/DL (70-110)
[2017-02-02 08:02] LABS: GLUCOSE,POINT OF CARE 178 MG/DL (70-110)
[2017-02-02] MEDS: DOCUSATE SODIUM 100 MG CAPSULE PO SCH ×2 (08:41→20:58)
[2017-02-02] MEDS: GABAPENTIN 100 MG CAPSULE PO SCH (08:41)
[2017-02-02] MEDS: VITAMIN B COMP/VIT C/FOLIC ACID CAPSULE PO SCH (08:41)
[2017-02-02] MEDS: LACTOBAC ACID/BULG/BIFID/THERM TABLET PO SCH ×2 (08:41→20:58)
[2017-02-02] MEDS: CALCITRIOL 0.25 MCG CAPSULE PO SCH (08:42)
[2017-02-02] MEDS: AmLODIPine BESYLATE 5 MG TABLET PO SCH (08:42)
[2017-02-02] MEDS: EPOETIN ALFA 10,000 UNITS/ML VIAL SQ SCH (08:44)
[2017-02-02] MEDS: PANTOPRAZOLE SODIUM 40 MG/VIAL IVP SCH (08:44)
[2017-02-02] MEDS: INSULIN DETEMIR 100 UNITS/ML SQ SCH ×2 (08:47→20:59)
[2017-02-02 09:47] LABS: GLUCOSE COMMENT 1 Received Meds; GLUCOSE,POINT OF CARE 203 MG/DL (70-110)
[2017-02-02 09:47] LABS: GLUCOSE COMMENT 1 Received Meds; GLUCOSE,POINT OF CARE 190 MG/DL (70-110)
[2017-02-02 09:47] LABS: GLUCOSE COMMENT 1 Received Meds; GLUCOSE,POINT OF CARE 237 MG/DL (70-110)
[2017-02-02] MEDS: CeFAZolin 2 GM/DEXTROSE 50 ML IV SCH (10:00)
[2017-02-02] MEDS: MAGNESIUM CHLORIDE 64 MG ER TABLET PO SCH ×2 (12:19→20:58)
[2017-02-02] MEDS: SILVER 45 ML GEL TP SCH (14:58)
[2017-02-02] MEDS: HYDROCODONE/ACETAMINOPHEN 5-325 MG TABLET PO PRN ×2 (14:59→18:53)
[2017-02-02] MEDS: HEPARIN SODIUM 25000 UNITS/D5W 250 ML IV PRN (15:27)
[2017-02-02 16:22] LABS: GLUCOSE,POINT OF CARE 148 MG/DL (70-110)
[2017-02-02] MEDS: SODIUM CHLORIDE 0.9% 500 ML IV SCH (19:11)
[2017-02-02 23:57] LABS: GLUCOSE COMMENT 1 Received Meds; GLUCOSE,POINT OF CARE 211 MG/DL (70-110)
[2017-02-03] VITALS (17 sets, daily range): BP systolic 103–162; BP diastolic 59–95
[2017-02-03] MEDS: HYDROCODONE/ACETAMINOPHEN 5-325 MG TABLET PO PRN ×4 (00:01→13:36)
[2017-02-03] MEDS: ALTEPLASE 8 MG in SODIUM CHLORIDE 0.9% 250 ML IV SCH ×2 (01:42→09:00)
[2017-02-03] MEDS ORDERED: SODIUM CHLORIDE 0.9% 250 ML IV ONE (05:07)
[2017-02-03 05:27] LABS: CALCIUM, TOTAL 8.4 mg/dL (8.8-10.5); CREATININE 2.34 mg/dL (0.60-1.30); MAGNESIUM 1.3 mg/dL (1.80-2.40); POTASSIUM 3.9 mmol/L (3.5-5.1)
[2017-02-03] MEDS: HEPARIN SODIUM 25000 UNITS/D5W 250 ML IV PRN (06:02)
[2017-02-03] MEDS: INSULIN ASPART 100 UNITS/ML SQ PRN ×4 (06:02→21:49)
[2017-02-03 06:09] LABS: BASOPHILS % (AUTO) 0.4 % (0.0-2.0); EOSINOPHILS % (AUTO) 1.2 % (1.0-6.0); HEMATOCRIT 29.2 % (36-46); HEMOGLOBIN 9.5 g/dL (12.0-16.0); LYMPHOCYTES # (AUTO) 2.9 K/uL (1.0-4.8); LYMPHOCYTES % (AUTO) 14.4 % (22.0-44.0); MEAN CORPUSCULAR HGB CONC 32.6 G/dL (31.0-37.0); MEAN CORPUSCULAR VOLUME 89 fL (80-100); MONOCYTES # (AUTO) 0.9 K/uL (0.1-1.0); MONOCYTES % (AUTO) 4.5 % (2.0-9.0); NEUTROPHILS # (AUTO) 15.9 K/uL (1.8-7.7); NEUTROPHILS % (AUTO) 79.5 % (40.0-70.0); PLATELET COUNT (AUTO) 389 K/uL (150-450); RED BLOOD CELL COUNT(AUTO) 3.28 MIL/uL (4.00-5.20); RED CELL DISTRIBUTION WIDTH 15.6 % (11.5-14.5); WHITE BLOOD COUNT (AUTO) 20.1 K/uL (4.5-11.0)
[2017-02-03 07:02] LABS: GLUCOSE COMMENT 1 Received Meds; GLUCOSE,POINT OF CARE 179 MG/DL (70-110)
[2017-02-03] MEDS: CeFAZolin 2 GM/DEXTROSE 50 ML IV SCH (08:23)
[2017-02-03] MEDS: LACTOBAC ACID/BULG/BIFID/THERM TABLET PO SCH ×2 (08:23→21:58)
[2017-02-03] MEDS: SEVELAMER CARBONATE 800 MG TABLET PO SCH ×3 (08:23→17:31)
[2017-02-03] MEDS: CALCITRIOL 0.25 MCG CAPSULE PO SCH (08:23)
[2017-02-03] MEDS: VITAMIN B COMP/VIT C/FOLIC ACID CAPSULE PO SCH (08:24)
[2017-02-03] MEDS: AmLODIPine BESYLATE 5 MG TABLET PO SCH (08:24)
[2017-02-03] MEDS: DOCUSATE SODIUM 100 MG CAPSULE PO SCH ×2 (08:24→21:49)
[2017-02-03] MEDS: GABAPENTIN 100 MG CAPSULE PO SCH (08:24)
[2017-02-03] MEDS: MAGNESIUM CHLORIDE 64 MG ER TABLET PO SCH ×3 (08:24→21:58)
[2017-02-03] MEDS: PANTOPRAZOLE SODIUM 40 MG/VIAL IVP SCH (08:24)
[2017-02-03] MEDS: INSULIN DETEMIR 100 UNITS/ML SQ SCH ×2 (08:28→21:48)
[2017-02-03] MEDS: SILVER 45 ML GEL TP SCH (09:00)
[2017-02-03] MEDS: MORPHINE SULFATE 2 MG/ML SYRINGE IVP PRN ×3 (10:00→21:14)
[2017-02-03] MEDS ORDERED: IODIXANOL 320 MG/ML 100 ML VIAL ONE ×3 (10:47→11:04)
[2017-02-03] MEDS ORDERED: IODIXANOL 320 MG/ML 150 ML VIAL ONE (10:49)
[2017-02-03] MEDS ORDERED: LIDOCAINE HCL/PF 1% 30 ML VIAL ONE (11:26)
[2017-02-03] MEDS ORDERED: FentaNYL CITRATE-PF 100 MCG/2 ML VIAL ONE (11:26)
[2017-02-03] MEDS ORDERED: MIDAZOLAM HCL 2 MG/2 ML VIAL ONE (11:26)
[2017-02-03] MEDS ORDERED: MIDAZOLAM HCL 2 MG/2 ML VIAL IVP ONE (11:27)
[2017-02-03] MEDS ORDERED: POVIDONE IODINE TP ONE (11:32)
[2017-02-03] MEDS ORDERED: FentaNYL CITRATE-PF 100 MCG/2 ML VIAL IVP ONE (11:37)
[2017-02-03] MEDS: SODIUM CHLORIDE 0.9% 500 ML IV SCH (16:52)
[2017-02-03 17:42] LABS: GLUCOSE COMMENT 1 Received Meds; GLUCOSE,POINT OF CARE 207 MG/DL (70-110)
[2017-02-03 22:41] LABS: GLUCOSE COMMENT 1 Received Meds; GLUCOSE,POINT OF CARE 185 MG/DL (70-110)
[2017-02-04] MEDS: MORPHINE SULFATE 2 MG/ML SYRINGE IVP PRN ×7 (00:13→21:12)
[2017-02-04 04:39] VITALS: BP 120/63
[2017-02-04] MEDS: INSULIN ASPART 100 UNITS/ML SQ PRN ×4 (06:13→21:00)
[2017-02-04 07:57] LABS: CALCIUM, TOTAL 8.3 mg/dL (8.8-10.5); CREATININE 2.29 mg/dL (0.60-1.30); MAGNESIUM 1.3 mg/dL (1.80-2.40); POTASSIUM 3.9 mmol/L (3.5-5.1)
[2017-02-04 08:07] LABS: GLUCOSE COMMENT 1 Received Meds; GLUCOSE,POINT OF CARE 227 MG/DL (70-110)
[2017-02-04 08:13] VITALS: BP 129/66
[2017-02-04] MEDS: CALCITRIOL 0.25 MCG CAPSULE PO SCH (08:25)
[2017-02-04] MEDS: SEVELAMER CARBONATE 800 MG TABLET PO SCH ×3 (08:25→18:07)
[2017-02-04] MEDS: VITAMIN B COMP/VIT C/FOLIC ACID CAPSULE PO SCH (08:26)
[2017-02-04] MEDS: LACTOBAC ACID/BULG/BIFID/THERM TABLET PO SCH ×2 (08:26→20:58)
[2017-02-04] MEDS: PANTOPRAZOLE SODIUM 40 MG/VIAL IVP SCH (08:26)
[2017-02-04] MEDS: AmLODIPine BESYLATE 5 MG TABLET PO SCH (08:26)
[2017-02-04] MEDS: DOCUSATE SODIUM 100 MG CAPSULE PO SCH ×2 (08:26→20:58)
[2017-02-04] MEDS: CeFAZolin 2 GM/DEXTROSE 50 ML IV SCH ×2 (08:26→23:14)
[2017-02-04] MEDS: MAGNESIUM CHLORIDE 64 MG ER TABLET PO SCH ×2 (08:27→20:58)
[2017-02-04] MEDS: GABAPENTIN 100 MG CAPSULE PO SCH (08:27)
[2017-02-04] MEDS: EPOETIN ALFA 10,000 UNITS/ML VIAL SQ SCH (08:27)
[2017-02-04] MEDS ORDERED: SODIUM CHLORIDE 0.9% 100 ML ONE (08:34)
[2017-02-04] MEDS: SILVER 45 ML GEL TP SCH (08:48)
[2017-02-04] MEDS: INSULIN DETEMIR 100 UNITS/ML SQ SCH ×2 (09:50→21:01)
[2017-02-04] MEDS ORDERED: MAGNESIUM SULFATE 3 GM in DEXTROSE 5%-WATER 100 ML IV ONE (10:30)
[2017-02-04 11:59] VITALS: BP 140/67
[2017-02-04 16:28] VITALS: BP 105/56
[2017-02-04 19:53] VITALS: BP 127/61
[2017-02-04] MEDS: HEPARIN SODIUM,PORCINE 5,000 UNITS/ML VIAL SQ SCH (21:01)
[2017-02-05 00:08] VITALS: BP 120/51
[2017-02-05 05:20] VITALS: BP 133/66
[2017-02-05] MEDS: MORPHINE SULFATE 2 MG/ML SYRINGE IVP PRN ×3 (05:25→20:20)
[2017-02-05 05:32] LABS: GLUCOSE COMMENT 1 Received Meds; GLUCOSE,POINT OF CARE 155 MG/DL (70-110)
[2017-02-05 05:32] LABS: GLUCOSE,POINT OF CARE 152 MG/DL (70-110)
[2017-02-05 05:32] LABS: GLUCOSE,POINT OF CARE 202 MG/DL (70-110)
[2017-02-05 05:36] LABS: GLUCOSE COMMENT 1 Received Meds; GLUCOSE,POINT OF CARE 153 MG/DL (70-110)
[2017-02-05 05:37] LABS: GLUCOSE,POINT OF CARE 155 MG/DL (70-110)
[2017-02-05 06:20] LABS: BASOPHILS % (AUTO) 0.3 % (0.0-2.0); EOSINOPHILS % (AUTO) 1.2 % (1.0-6.0); HEMATOCRIT 24.3 % (36-46); HEMOGLOBIN 7.9 g/dL (12.0-16.0); LYMPHOCYTES # (AUTO) 2.1 K/uL (1.0-4.8); LYMPHOCYTES % (AUTO) 15.3 % (22.0-44.0); MEAN CORPUSCULAR HEMOGLOBIN 28.6 pg (26.0-34.0); MEAN CORPUSCULAR HGB CONC 32.4 G/dL (31.0-37.0); MEAN CORPUSCULAR VOLUME 88 fL (80-100); MONOCYTES # (AUTO) 0.7 K/uL (0.1-1.0); NEUTROPHILS # (AUTO) 10.8 K/uL (1.8-7.7); NEUTROPHILS % (AUTO) 78.2 % (40.0-70.0); PLATELET COUNT (AUTO) 389 K/uL (150-450); RED BLOOD CELL COUNT(AUTO) 2.76 MIL/uL (4.00-5.20); RED CELL DISTRIBUTION WIDTH 15.9 % (11.5-14.5); WHITE BLOOD COUNT (AUTO) 13.8 K/uL (4.5-11.0)
[2017-02-05] MEDS: INSULIN ASPART 100 UNITS/ML SQ PRN ×4 (06:26→20:40)
[2017-02-05 06:54] LABS: ALBUMIN 1.5 g/dL (3.4-5.0); BILIRUBIN,TOTAL 0.3 mg/dL (0.1-1.0); CALCIUM, TOTAL 8.6 mg/dL (8.8-10.5); CREATININE 1.94 mg/dL (0.60-1.30); PHOSPHORUS 3.6 mg/dL (2.5-4.9); POTASSIUM 4.1 mmol/L (3.5-5.1); TOTAL PROTEIN, SERUM 8.3 g/dL (6.4-8.2)
[2017-02-05 07:44] VITALS: BP 128/59
[2017-02-05] MEDS: AmLODIPine BESYLATE 5 MG TABLET PO SCH (08:47)
[2017-02-05] MEDS: DOCUSATE SODIUM 100 MG CAPSULE PO SCH ×2 (08:47→20:29)
[2017-02-05] MEDS: PANTOPRAZOLE SODIUM 40 MG/VIAL IVP SCH (08:48)
[2017-02-05] MEDS: MAGNESIUM CHLORIDE 64 MG ER TABLET PO SCH ×2 (08:48→20:29)
[2017-02-05] MEDS: LACTOBAC ACID/BULG/BIFID/THERM TABLET PO SCH ×2 (08:48→20:29)
[2017-02-05] MEDS: HEPARIN SODIUM,PORCINE 5,000 UNITS/ML VIAL SQ SCH ×2 (08:48→20:29)
[2017-02-05] MEDS: SEVELAMER CARBONATE 800 MG TABLET PO SCH ×2 (08:48→12:00)
[2017-02-05] MEDS: VITAMIN B COMP/VIT C/FOLIC ACID CAPSULE PO SCH (08:49)
[2017-02-05] MEDS: SILVER 45 ML GEL TP SCH (08:49)
[2017-02-05] MEDS: CALCITRIOL 0.25 MCG CAPSULE PO SCH (08:49)
[2017-02-05] MEDS: GABAPENTIN 100 MG CAPSULE PO SCH (08:49)
[2017-02-05] MEDS: INSULIN DETEMIR 100 UNITS/ML SQ SCH ×2 (08:59→20:42)
[2017-02-05 11:24] VITALS: BP 133/70
[2017-02-05] MEDS: CeFAZolin 2 GM/DEXTROSE 50 ML IV SCH ×2 (12:07→23:08)
[2017-02-05 15:19] VITALS: BP 127/58
[2017-02-05 19:21] VITALS: BP 138/69
[2017-02-06] VITALS (7 sets, daily range): BP systolic 125–145; BP diastolic 53–74
[2017-02-06 01:36] LABS: GLUCOSE,POINT OF CARE 163 MG/DL (70-110)
[2017-02-06 01:36] LABS: GLUCOSE COMMENT 1 Received Meds; GLUCOSE,POINT OF CARE 152 MG/DL (70-110)
[2017-02-06 01:52] LABS: GLUCOSE,POINT OF CARE 191 MG/DL (70-110)
[2017-02-06 02:02] LABS: GLUCOSE COMMENT 1 Received Meds; GLUCOSE,POINT OF CARE 232 MG/DL (70-110)
[2017-02-06 02:07] LABS: GLUCOSE,POINT OF CARE 149 MG/DL (70-110)
[2017-02-06 04:26] LABS: GLUCOSE COMMENT 1 Received Meds; GLUCOSE,POINT OF CARE 251 MG/DL (70-110)
[2017-02-06 04:26] LABS: GLUCOSE COMMENT 1 Received Meds; GLUCOSE,POINT OF CARE 188 MG/DL (70-110)
[2017-02-06 04:32] LABS: GLUCOSE,POINT OF CARE 164 MG/DL (70-110)
[2017-02-06 04:32] LABS: GLUCOSE COMMENT 1 Received Meds; GLUCOSE,POINT OF CARE 270 MG/DL (70-110)
[2017-02-06] MEDS: MORPHINE SULFATE 2 MG/ML SYRINGE IVP PRN ×5 (05:02→20:19)
[2017-02-06] MEDS: INSULIN ASPART 100 UNITS/ML SQ PRN ×4 (05:56→22:37)
[2017-02-06 07:17] LABS: GLUCOSE COMMENT 1 Stat Lab Glu Request; GLUCOSE,POINT OF CARE 157 MG/DL (70-110)
[2017-02-06 07:23] LABS: CALCIUM, TOTAL 8.8 mg/dL (8.8-10.5); CREATININE 1.8 mg/dL (0.60-1.30); MAGNESIUM 1.9 mg/dL (1.80-2.40); PHOSPHORUS 3.6 mg/dL (2.5-4.9)
[2017-02-06 07:33] LABS: BASOPHILS # (AUTO) 0.05 K/uL (0.00-0.20); BASOPHILS % (AUTO) 0.4 % (0.0-2.0); EOSINOPHILS # (AUTO) 0.21 K/uL (0.00-0.70); EOSINOPHILS % (AUTO) 1.81 % (1.0-6.0); HEMATOCRIT 24.5 % (36-46); HEMOGLOBIN 8.2 g/dL (12.0-16.0); LYMPHOCYTES % (AUTO) 17.4 % (22.0-44.0); MEAN CORPUSCULAR HEMOGLOBIN 28.5 pg (26.0-34.0); MEAN CORPUSCULAR HGB CONC 33.4 G/dL (31.0-37.0); MEAN CORPUSCULAR VOLUME 85 fL (80-100); MONOCYTES # (AUTO) 0.8 K/uL (0.1-1.0); MONOCYTES % (AUTO) 6.8 % (2.0-9.0); NEUTROPHILS # (AUTO) 8.4 K/uL (1.8-7.7); NEUTROPHILS % (AUTO) 73.7 % (40.0-70.0); PLATELET COUNT (AUTO) 410 K/uL (150-450); RED BLOOD CELL COUNT(AUTO) 2.87 MIL/uL (4.00-5.20); RED CELL DISTRIBUTION WIDTH 16.1 % (11.5-14.5); WHITE BLOOD COUNT (AUTO) 11.4 K/uL (4.5-11.0)
[2017-02-06] MEDS: MAGNESIUM CHLORIDE 64 MG ER TABLET PO SCH ×2 (09:08→22:21)
[2017-02-06] MEDS: HEPARIN SODIUM,PORCINE 5,000 UNITS/ML VIAL SQ SCH ×2 (09:08→22:22)
[2017-02-06] MEDS: DOCUSATE SODIUM 100 MG CAPSULE PO SCH ×2 (09:08→22:21)
[2017-02-06] MEDS: PANTOPRAZOLE SODIUM 40 MG/VIAL IVP SCH (09:08)
[2017-02-06] MEDS: GABAPENTIN 100 MG CAPSULE PO SCH (09:08)
[2017-02-06] MEDS: CALCITRIOL 0.25 MCG CAPSULE PO SCH (09:08)
[2017-02-06] MEDS: LACTOBAC ACID/BULG/BIFID/THERM TABLET PO SCH ×2 (09:09→22:21)
[2017-02-06] MEDS: AmLODIPine BESYLATE 5 MG TABLET PO SCH (09:09)
[2017-02-06] MEDS: VITAMIN B COMP/VIT C/FOLIC ACID CAPSULE PO SCH (09:09)
[2017-02-06] MEDS: SILVER 45 ML GEL TP SCH (09:13)
[2017-02-06] MEDS ORDERED: LIDOCAINE HCL/PF 1% 30 ML VIAL ONE (09:44)
[2017-02-06] MEDS: INSULIN DETEMIR 100 UNITS/ML SQ SCH ×2 (09:44→22:38)
[2017-02-06 11:30] LABS: INR 1.1 (0.9-1.1); PROTHROMBIN TIME 11.3 SEC (9.4-11.6)
[2017-02-06] MEDS: CeFAZolin 2 GM/DEXTROSE 50 ML IV SCH ×2 (11:48→22:21)
[2017-02-06 20:17] LABS: GLUCOSE,POINT OF CARE 182 MG/DL (70-110)
[2017-02-06 20:17] LABS: GLUCOSE,POINT OF CARE 201 MG/DL (70-110)
[2017-02-06 20:21] LABS: GLUCOSE,POINT OF CARE 163 MG/DL (70-110)
[2017-02-07 01:02] LABS: GLUCOSE COMMENT 1 Received Meds; GLUCOSE,POINT OF CARE 160 MG/DL (70-110)
[2017-02-07] MEDS: MORPHINE SULFATE 2 MG/ML SYRINGE IVP PRN ×5 (03:10→20:58)
[2017-02-07 04:28] VITALS: BP 135/63
[2017-02-07] MEDS: INSULIN ASPART 100 UNITS/ML SQ PRN ×4 (06:16→21:02)
[2017-02-07 07:23] LABS: GLUCOSE COMMENT 1 Received Meds; GLUCOSE,POINT OF CARE 153 MG/DL (70-110)
[2017-02-07 07:37] LABS: CALCIUM, TOTAL 8.6 mg/dL (8.8-10.5); CREATININE 1.53 mg/dL (0.60-1.30); MAGNESIUM 1.5 mg/dL (1.80-2.40); PHOSPHORUS 3.7 mg/dL (2.5-4.9)
[2017-02-07 07:44] VITALS: BP 139/63
[2017-02-07] MEDS: HEPARIN SODIUM,PORCINE 5,000 UNITS/ML VIAL SQ SCH ×2 (08:51→20:57)
[2017-02-07] MEDS: MAGNESIUM CHLORIDE 64 MG ER TABLET PO SCH ×2 (08:51→20:56)
[2017-02-07] MEDS: LACTOBAC ACID/BULG/BIFID/THERM TABLET PO SCH ×2 (08:51→20:56)
[2017-02-07] MEDS: PANTOPRAZOLE SODIUM 40 MG/VIAL IVP SCH (08:51)
[2017-02-07] MEDS: AmLODIPine BESYLATE 5 MG TABLET PO SCH (08:52)
[2017-02-07] MEDS: DOCUSATE SODIUM 100 MG CAPSULE PO SCH ×2 (08:52→20:56)
[2017-02-07] MEDS: GABAPENTIN 100 MG CAPSULE PO SCH (08:52)
[2017-02-07] MEDS: CALCITRIOL 0.25 MCG CAPSULE PO SCH (08:52)
[2017-02-07] MEDS: VITAMIN B COMP/VIT C/FOLIC ACID CAPSULE PO SCH (08:53)
[2017-02-07] MEDS: SILVER 45 ML GEL TP SCH (08:54)
[2017-02-07] MEDS: EPOETIN ALFA 10,000 UNITS/ML VIAL SQ SCH (09:21)
[2017-02-07] MEDS: INSULIN DETEMIR 100 UNITS/ML SQ SCH ×2 (09:28→21:02)
[2017-02-07] MEDS: CeFAZolin 2 GM/DEXTROSE 50 ML IV SCH ×2 (10:30→22:39)
[2017-02-07] MEDS ORDERED: SODIUM CHLORIDE 0.9% 250 ML IV ONE (10:35)
[2017-02-07 13:04] VITALS: BP 126/60
[2017-02-07] MEDS: LIDOCAINE HCL 5% TRANSDERMAL PATCH TD SCH (13:05)
[2017-02-07 15:15] VITALS: BP 114/58
[2017-02-07 19:22] VITALS: BP 121/64
[2017-02-07] MEDS ORDERED: -LIDODERM PATCH NOTE- MISC SCH ×2 (21:00)
[2017-02-07 23:30] VITALS: BP 145/77
[2017-02-08] MEDS: MORPHINE SULFATE 2 MG/ML SYRINGE IVP PRN ×3 (00:46→06:35)
[2017-02-08 04:37] VITALS: BP 128/56
[2017-02-08] MEDS: CeFAZolin 2 GM/DEXTROSE 50 ML IV SCH ×2 (05:22→14:08)
[2017-02-08] MEDS: INSULIN ASPART 100 UNITS/ML SQ PRN (06:19)
[2017-02-08 06:42] LABS: GLUCOSE COMMENT 1 Received Meds; GLUCOSE,POINT OF CARE 149 MG/DL (70-110)
[2017-02-08 06:42] LABS: GLUCOSE COMMENT 1 Received Meds; GLUCOSE,POINT OF CARE 171 MG/DL (70-110)
[2017-02-08 06:42] LABS: GLUCOSE COMMENT 1 Received Meds; GLUCOSE,POINT OF CARE 156 MG/DL (70-110)
[2017-02-08 06:46] LABS: GLUCOSE COMMENT 1 Received Meds; GLUCOSE,POINT OF CARE 226 MG/DL (70-110)
[2017-02-08 06:50] LABS: BASOPHILS % (AUTO) 0.4 % (0.0-2.0); EOSINOPHILS % (AUTO) 2.8 % (1.0-6.0); HEMATOCRIT 24.9 % (36-46); HEMOGLOBIN 8.1 g/dL (12.0-16.0); LYMPHOCYTES # (AUTO) 1.9 K/uL (1.0-4.8); LYMPHOCYTES % (AUTO) 18.8 % (22.0-44.0); MEAN CORPUSCULAR HEMOGLOBIN 28.9 pg (26.0-34.0); MEAN CORPUSCULAR HGB CONC 32.7 G/dL (31.0-37.0); MEAN CORPUSCULAR VOLUME 89 fL (80-100); MONOCYTES # (AUTO) 0.7 K/uL (0.1-1.0); MONOCYTES % (AUTO) 6.3 % (2.0-9.0); NEUTROPHILS # (AUTO) 7.4 K/uL (1.8-7.7); NEUTROPHILS % (AUTO) 71.7 % (40.0-70.0); PLATELET COUNT (AUTO) 426 K/uL (150-450); RED BLOOD CELL COUNT(AUTO) 2.81 MIL/uL (4.00-5.20); RED CELL DISTRIBUTION WIDTH 15.9 % (11.5-14.5); WHITE BLOOD COUNT (AUTO) 10.3 K/uL (4.5-11.0)
[2017-02-08 07:11] VITALS: BP 131/71
[2017-02-08 07:17] LABS: CALCIUM, TOTAL 8.5 mg/dL (8.8-10.5); CREATININE 1.6 mg/dL (0.60-1.30); MAGNESIUM 1.5 mg/dL (1.80-2.40); POTASSIUM 3.9 mmol/L (3.5-5.1)
[2017-02-08] MEDS: LACTOBAC ACID/BULG/BIFID/THERM TABLET PO SCH (09:34)
[2017-02-08] MEDS: DOCUSATE SODIUM 100 MG CAPSULE PO SCH (09:34)
[2017-02-08] MEDS: CALCITRIOL 0.25 MCG CAPSULE PO SCH (09:34)
[2017-02-08] MEDS: MAGNESIUM CHLORIDE 64 MG ER TABLET PO SCH (09:34)
[2017-02-08] MEDS: PANTOPRAZOLE SODIUM 40 MG/VIAL IVP SCH (09:34)
[2017-02-08] MEDS: VITAMIN B COMP/VIT C/FOLIC ACID CAPSULE PO SCH (09:34)
[2017-02-08] MEDS: GABAPENTIN 100 MG CAPSULE PO SCH (09:34)
[2017-02-08] MEDS: AmLODIPine BESYLATE 5 MG TABLET PO SCH (09:34)
[2017-02-08] MEDS: HYDROCODONE/ACETAMINOPHEN 5-325 MG TABLET PO PRN (09:35)
[2017-02-08] MEDS: INSULIN DETEMIR 100 UNITS/ML SQ SCH (09:36)
[2017-02-08] MEDS: SILVER 45 ML GEL TP SCH (09:38)
[2017-02-08] MEDS: LIDOCAINE HCL 5% TRANSDERMAL PATCH TD SCH (09:39)
[2017-02-08] MEDS: HEPARIN SODIUM,PORCINE 5,000 UNITS/ML VIAL SQ SCH (09:39)
[2017-02-08] MEDS ORDERED: MAGNESIUM SULFATE 1 GM in DEXTROSE 5%-WATER 50 ML IV ONE ×4 (10:15)
[2017-02-08 11:16] VITALS: BP 123/59
[2017-02-08] MEDS ORDERED: LIDOP TD (14:53)
[2017-02-08] MEDS ORDERED: AMLO-511 PO (14:55)
[2017-02-08] MEDS ORDERED: CALC25 PO (14:55)
[2017-02-08] MEDS ORDERED: CEFA2PIG3 IV (14:57)
[2017-02-08] MEDS ORDERED: DSS100 PO (14:57)
[2017-02-08] MEDS ORDERED: EPOE10I SQ (14:58)
[2017-02-08] MEDS ORDERED: INSU100V12 SQ (15:00)
[2017-02-08] MEDS ORDERED: LACT1CAP38 PO (15:01)
[2017-02-08] MEDS ORDERED: PANT40TA25 PO (15:02)
[2017-02-08] MEDS ORDERED: SLOMG PO (15:02)
[2017-02-08] MEDS ORDERED: SILV45GE TP (15:03)
[2017-02-08] MEDS ORDERED: VITA1CAP PO (15:03)
[2017-02-08] MEDS ORDERED: BISA10S PR (15:04)
[2017-02-08] MEDS ORDERED: ACET-2247 PO (15:04)
[2017-02-08] MEDS ORDERED: HYDR-3965 PO (15:05)
[2017-02-08] MEDS ORDERED: INSNOV SQ (15:06)
[2017-02-08] MEDS ORDERED: ZOLP5 PO (15:07)
[2017-02-08 15:13] VITALS: BP 130/62
[2017-02-08] MEDS: ONDANSETRON HCL 4 MG/2 ML VIAL IVP PRN (15:28)
[2017-02-09 04:22] LABS: GLUCOSE,POINT OF CARE 141 MG/DL (70-110)
[2017-02-09 04:22] LABS: GLUCOSE,POINT OF CARE 139 MG/DL (70-110)
[2017-02-09 06:23] LABS: ALBUMIN URINE (ELP24) 34.9 %; ALPHA-1 URINE (ELP24) 3.6 %; ALPHA-2 URINE(ELP24) 9.5 %; BETA URINE(ELP24) 13.6 %; GAMMA URINE(ELP24) 38.5 %; TOTAL PROTEIN URINE 129.9 mg/dL (Not Estab.)
== END 2017-02-08 15:50 | DRG 710 ==
LOC: EMS 09:19 → 6N 13:50 → ICU 01-24 10:54 → 5S 01-25 16:35 → ICU 02-01 17:15 → 5N 02-03 18:20
PROVIDERS: ADMIT Hospitalist; ATTEND Hospitalist
PROC: 0QBN0ZZ Excision of Right Metatarsal, Open Approach (ICD-10-PCS; principal; 2017-01-25)
PROC: 30233N1 Transfusion of Nonautologous Red Blood Cells into Peripheral Vein, Percutaneous Approach (ICD-10-PCS; 2017-01-26)
PROC: 5A1D60Z (ICD-10-PCS; 2017-01-27)
PROC: B41F1ZZ Fluoroscopy of Right Lower Extremity Arteries using Low Osmolar Contrast (ICD-10-PCS; 2017-02-01)
PROC: 3E05317 Introduction of Other Thrombolytic into Peripheral Artery, Percutaneous Approach (ICD-10-PCS; 2017-02-01)
PROC: B41F1ZZ Fluoroscopy of Right Lower Extremity Arteries using Low Osmolar Contrast (ICD-10-PCS; 2017-02-03)
DX: A41.9 Sepsis, unspecified organism (principal); N17.0 Acute kidney failure with tubular necrosis; E43 Unspecified severe protein-calorie malnutrition; I74.3 Embolism and thrombosis of arteries of the lower extremities; I74.8 Embolism and thrombosis of other arteries; L03.115 Cellulitis of right lower limb; N18.6 End stage renal disease; B95.61 Methicillin susceptible Staphylococcus aureus infection as the cause of diseases classified elsewhere; E11.21 Type 2 diabetes mellitus with diabetic nephropathy; D63.8 Anemia in other chronic diseases classified elsewhere; E11.22 Type 2 diabetes mellitus with diabetic chronic kidney disease; E11.319 Type 2 diabetes mellitus with unspecified diabetic retinopathy without macular edema; E11.52 Type 2 diabetes mellitus with diabetic peripheral angiopathy with gangrene; F17.210 Nicotine dependence, cigarettes, uncomplicated; L97.519 Non-pressure chronic ulcer of other part of right foot with unspecified severity; L02.611 Cutaneous abscess of right foot; E11.40 Type 2 diabetes mellitus with diabetic neuropathy, unspecified; E11.621 Type 2 diabetes mellitus with foot ulcer; E11.622 Type 2 diabetes mellitus with other skin ulcer; E11.628 Type 2 diabetes mellitus with other skin complications; E11.65 Type 2 diabetes mellitus with hyperglycemia; E11.69 Type 2 diabetes mellitus with other specified complication; E21.3 Hyperparathyroidism, unspecified; M86.8X7 Other osteomyelitis, ankle and foot; G89.29 Other chronic pain; I99.8 Other disorder of circulatory system; L97.809 Non-pressure chronic ulcer of other part of unspecified lower leg with unspecified severity; I12.0 Hypertensive chronic kidney disease with stage 5 chronic kidney disease or end stage renal disease; E78.00 Pure hypercholesterolemia, unspecified; E83.42 Hypomagnesemia; E87.1 Hypo-osmolality and hyponatremia; Z68.31 Body mass index [BMI] 31.0-31.9, adult; Z79.899 Other long term (current) drug therapy; Z79.4 Long term (current) use of insulin; Z82.49 Family history of ischemic heart disease and other diseases of the circulatory system; Z83.3 Family history of diabetes mellitus
CPT/HCPCS: 36245; 36561; 36590; 73721; 75710; 76770; 82271; 82570; 82575; 82962; 83036; 83540; 83550; 83605; 83735; 83970; 84100; 84156; 84166; 84300; 84540; 85014; 85018; 86140; 86850; 86900; 86901; 86920; 87040; 87045; 87070; 87081; 87147; 87205; 87324; 87340; 87449; 90471; 90935; 93925; 96365; 96372; 96375; 99285; C9113; J0690; J0712; J0878; J0885; J1170; J1644; J1815; J2150; J2250; J2270; J2405; J2543; J2765; J2997; J3010; J3475; J3490; J7030; J7040; J7050; J7060; P9016; Q9967